=== PATIENT | female | born 1970 | race Two or more races ===

== ENCOUNTER 2023-06-20 09:09 | Emergency (ER) | payer MEDICAID ==
[~2023-06-20] VITALS: Ht 170.2 cm; Wt 70.9 kg
[2023-06-20 10:30] VITALS: BP 112/60; PULSE 85; RESP 20; TEMP 97.8; O2SAT 100
[2023-06-20] MEDS ORDERED: HYDROcodone-ACET 5/325MG TAB PO ONE (10:45)
[2023-06-20] MEDS ORDERED: IBUP-1456 PO (11:02)
== END 2023-06-20 11:03 | disposition home or self-care (01) ==
LOC: ER 09:09
DX: S52.501A Unspecified fracture of the lower end of right radius, initial encounter for closed fracture (principal); W01.0XXA Fall on same level from slipping, tripping and stumbling without subsequent striking against object, initial encounter; Y93.89 Activity, other specified; Y92.89 Other specified places as the place of occurrence of the external cause; Y99.8 Other external cause status
CPT/HCPCS: 29125; 73110